=== PATIENT | male | born 1960 | race Caucasian/White ===

== ENCOUNTER 2024-05-25 14:02 | Emergency (ER) | payer MEDICARE, OTHER, SELFPAY ==
[2024-05-25 14:10] VITALS: BP 127/83; PULSE 61; RESP 18; TEMP 36.8; O2SAT 98; BMI 23.1
--- NOTE | 2024-05-25 16:17 | W.ED.EAR ---
HPI - Ear Problem General: Chief complaint: Ear Stated complaint: lt ear bleeding Time Seen by Provider: 05/25/24 15:53 Source: patient Mode of arrival: ambulatory Limitations: no limitations History of Present Illness: Patient is a 63-year-old male presents to ED today for evaluation of blood coming from his left ear. Patient states he was using an Q-tip to clean water out of his ear when he immediately felt pain and a gush of blood. Patient is not complaining of dizziness/lightheadedness or tinnitus. He does report sounds are muffled. MD Complaint: ear pain and ear discharge Location: left ear Duration: constant Severity: moderate Relieving factors: nothing Exacerbating factors: nothing Context: trauma (qtip) Discharge from ear: yes - bloody Associated symptoms: Reports ear or mastoid pain; Denies fever(s), headache(s) or tinnitus Treatment prior to arrival: none Related Data Previous Rx's ?Medication ?Instructions ?Recorded clotrimazole-betamethasone 1 1 applic topical BID 4 weeks #45 01/12/24 %-0.05 % topical cream grams amoxicillin 875 mg-potassium 1 tab PO BID #14 tabs 05/25/24 clavulanate 125 mg tablet ofloxacin 0.3 % ear drops 10 drp otic (ear) DAILY 7 days #5 05/25/24 mL Allergies Allergy/AdvReac Type Severity Reaction Status Date / Time No Known Allergies Allergy Verified 01/12/24 10:19 Review of Systems Const: Denies: fever(s), chills, body aches, fatigue or malaise ENMT: Reports: ear or mastoid pain and ear discharge; Denies: tinnitus or disequilibrium GI: Denies: nausea or vomiting Neuro: Denies: headache(s) [facility] ED PFSH: Social History Smoking and tobacco/nicotine status: never used tobacco/nicotine Physical Exam Const: COMMON NORMALS: no acute distress, average body habitus, patient oriented x3, no limitations, healthy appearing, alert and well nourished HENMT: COMMON NORMALS: normocephalic and atraumatic HEAD & SCALP: normocephalic and atraumatic FACE & SINUS: normal facial exam EXTERNAL AUDITORY CANAL: Abnormal EAC present EAC laterality: left Details: otic discharge Details: bloody and occluded by discharge TYMPANIC MEMBRANE: TM normal on the right and unable to visualize TM (left due to blood) Neuro: COMMON NORMALS: patient oriented x3 SENSORIUM/ORIENTATION: Yes alert Course Vital Signs: Vital signs: Vital Signs Temperature 98.3 F 05/25/24 14:10 Pulse Rate 61 05/25/24 14:10 Respiratory Rate 18 05/25/24 14:10 Blood Pressure 127/83 05/25/24 14:10 Pulse Oximetry 98 05/25/24 14:10 Oxygen Delivery Me thod Room Air 05/25/24 14:10 MDM - Ear Medical Decision Making History is consistent with a traumatic left tympanic membrane rupture. He has no active bleeding. Patient will be placed on oral/otic antibiotic therapy and he can follow-up with primary care. They can refer to ENT if needed. Differential Diagnosis Likely ruptured TM Medical Records I reviewed the patient's medical records. No radiology studies performed this visit Discharge Plan Discharge Patient Disposition: Home Clinical Impression: Tympanic membrane perforation Condition: Stable Prescriptions: New amoxicillin-pot clavulanate 875-125 mg tablet 1 tab PO BID Qty: 14 0RF ofloxacin 0.3 % drops 10 drp otic (ear) DAILY 7 Days Qty: 5 0RF No Action clotrimazole-betamethasone 1-0.05 % cream 1 applic topical BID 28 Days Qty: 45 0RF Discharge Orders: Discharge ED (Routine); Ordered 05/25/24 Ordered By: Janice Elizabeth Referrals: Zaid Culver, UTILITIES EQUIPMENT REPAIRER [Primary Care Provider] - Patient Instructions: Ruptured Eardrum (ED) Activity Restrictions/Additional Instructions: As we discussed, please follow-up with primary care next week for reevaluation. Nothing further into your ear other than your eardrops. They may refer you to ENT if eardrum does not appear to be healing or if you begin developing other complications chassis hearing loss. Print Language: Guyanese Coding Level of Care Code ED Instructional Design Specialist for Pavithra Quevedo
[2024-05-25 16:38] VITALS: BP 109/72; PULSE 85; RESP 18; O2SAT 97
== END 2024-05-25 16:40 | disposition home or self-care (01) ==
PROVIDERS: Emergency Provider Physician Assistant; PCP Nurse Practitioner
DX: H72.92 Unspecified perforation of tympanic membrane, left ear (principal)
CPT/HCPCS: 99283